=== PATIENT | male | born 1985 | race American Indian/Alaskan Native ===

== ENCOUNTER 2019-08-23 21:39 | Emergency (ER) | payer SELFPAY ==
[2019-08-23] MEDS ORDERED: ACETAMINOPHEN 500 MG TAB PO ONE (21:49)
[2019-08-23] MEDS ORDERED: SODIUM CHLORIDE 0.9% 1000 ML 2,000 ML ONE (22:14)
[2019-08-23] MEDS ORDERED: SODIUM CHLORIDE 0.9% 1000 ML 1,000 ML IV ONE (22:17)
[2019-08-23] MEDS ORDERED: KETOROLAC 30 MG/1 ML INJ IV ONE (22:17)
[2019-08-23] MEDS ORDERED: SODIUM CHLORIDE 0.9% 1000 ML 2,000 ML IV ONE (22:17)
--- NOTE | 2019-08-23 22:24 | XRay Report ---
CHEST 1 VIEW INDICATION: suspected vovid fever cough sob. COMPARISON: None FINDINGS: Support devices: None. Heart: Within normal limits. Lungs/Pleura: Mild patchy right basilar airspace disease with clear left lung. Additional findings: None. IMPRESSION: 1. Pulmonary findings as above Signer Name: Abdirashid Waggoner MD Signed: 08/23/2019 10:19 PM Workstation Name: [id number]
--- NOTE | 2019-08-23 23:00 | Emergency Department Report ---
ED General Adult HPI - General Chief complaint: Dyspnea/Respdistress Stated complaint: BODYACHES,CHILLS,FEVER,KIP Time Seen by Provider: 08/23/19 21:49 Source: patient Mode of arrival: Ambulatory Limitations: No Limitations - History of Present Illness Initial comments: The patient is a 34-year-old gentleman. He is not known to myself previously. He does not have a local primary care doctor. He denies chronic medical conditions. Please note that for the entire history and physical examination, I had on complete personal protective equipment. The patient presents to the ER on day 7 of symptoms, with a complaint of cough, shortness of breath, malaise, fatigue. He denies DVT and pulmonary embolism risk factors. He reports taking albuterol inhaler that was prescribed from him. He denies physical pain at this time. He endorses self quarantine, and he reports no confirmed contacts with coronavirus that he is aware of. His symptoms are constant, getting worse, they increased with physical exertion, and they decreased with rest. -: Gradual, days(s) (7) Severity scale (0 -10): 6 Consistency: constant Improves with: rest Worsens with: movement - Related Data Previous Rx's Medication Instructions Recorded Last Taken Type Amoxicillin [Trimox CAP] 1,000 mg PO Q8H #28 capsule 08/24/19 Unknown Rx Azithromycin [Zithromax Z-SAM] 250 mg PO QDAY #4 tablet 08/24/19 Unknown Rx Allergies Allergy/AdvReac Type Severity Reaction Status Date / Time No Known Allergies Allergy Unverified 10/05/15 18:22 ED Review of Systems ROS: Stated complaint: BODYACHES,CHILLS,FEVER,KIP Other details as noted in HPI Constitutional: fever, malaise, weakness Eyes: denies: eye discharge ENT: congestion Respiratory: cough, shortness of breath Cardiovascular: denies: syncope Gastrointestinal: denies: abdominal pain Genitourinary: as per HPI Musculoskeletal: as per HPI Skin: as per HPI Neurological: as per HPI Psychiatric: as per HPI Hematological/Lymphatic: as per HPI ED Past Medical Hx - Past Medical History Hx Asthma: Yes - Surgical History Additional Surgical History: Appendix removal 2009 - Social History Smoking Status: Never Smoker Substance Use Type: Alcohol - Medications Home Medications: Home Medications Medication Instructions Recorded Confirmed Last Taken Type Amoxicillin [Trimox CAP] 1,000 mg PO Q8H #28 capsule 08/24/19 Unknown Rx Azithromycin [Zithromax Z-SAM] 250 mg PO QDAY #4 tablet 08/24/19 Unknown Rx ED Physical Exam - General Limitations: No Limitations General appearance: alert, anxious - Head Head exam: Present: atraumatic, normocephalic - Eye Eye exam: Present: normal appearance, EOMI. Absent: nystagmus - ENT ENT exam: Present: normal exam, normal orophraynx, mucous membranes moist, normal external ear exam - Neck Neck exam: Present: normal inspection, full ROM. Absent: tenderness, meningismus - Respiratory Respiratory exam: Absent: wheezes, rales, rhonchi, stridor - Cardiovascular Cardiovascular Exam: Present: normal rhythm, tachycardia, normal heart sounds. Absent: systolic murmur, diastolic murmur, rubs, gallop - GI/Abdominal GI/Abdominal exam: Present: soft. Absent: distended, tenderness, guarding, rebound, rigid, pulsatile mass - Rectal Rectal exam: Present: deferred - Extremities Exam Extremities exam: Present: normal inspection, full ROM, other (2+ pulses noted in the bilateral upper and lower extremities. There is no palpable cord. negative Homans sign. Muscular compartments are soft. The pelvis is stable.). Absent: pedal edema, calf tenderness - Back Exam Back exam: Present: normal inspection, full ROM. Absent: tenderness, CVA tenderness (R), CVA tenderness (L), paraspinal tenderness, vertebral tenderness - Neurological Exam Neurological exam: Present: alert, oriented X3, other (There is no facial droop. The tongue is midline. Extraocular movements are intact bilaterally. There is 5 out of 5 strength in bilateral upper and lower extremities. Sensation is intact to light touch bilateral upper and lower extremities. There is a normal gait.). Absent: motor sensory deficit - Psychiatric Psychiatric exam: Present: anxious - Skin Skin exam: Present: warm, dry, intact, normal color. Absent: rash ED Course Vital Signs 08/23/19 08/23/19 08/23/19 21:42 21:45 21:49 Temperature 103.0 F H 103.6 F H Pulse Rate 137 H Respiratory 24 20 Rate Blood Pressure 151/92 O2 Sat by Pulse 92 98 Oximetry 08/23/19 08/23/19 08/23/19 21:53 22:00 22:15 Temperature Pulse Rate 127 H 118 H 128 H Respiratory 21 39 H 25 H Rate Blood Pressure 141/94 126/86 O2 Sat by Pulse 95 Oximetry 08/23/19 08/23/19 08/23/19 22:30 22:45 23:00 Temperature Pulse Rate 116 H 117 H 114 H Respiratory 28 H 24 27 H Rate Blood Pressure 120/90 120/87 120/87 O2 Sat by Pulse 96 96 96 Oximetry 08/23/19 08/23/19 08/23/19 23:15 23:30 23:45 Temperature Pulse Rate 110 H 106 H 107 H Respiratory 25 H 26 H 23 Rate Blood Pressure 127/82 135/83 124/85 O2 Sat by Pulse 98 98 97 Oximetry 08/23/19 08/24/19 08/24/19 23:59 00:00 00:15 Temperature Pulse Rate 105 H 106 H 104 H Respiratory 25 H 23 22 Rate Blood Pressure 124/85 126/86 123/87 O2 Sat by Pulse 97 97 Oximetry 08/24/19 08/24/19 08/24/19 00:30 00:45 01:00 Temperature 99.8 F H Pulse Rate 102 H 94 H 94 H Respiratory 29 H 22 26 H Rate Blood Pressure 128/86 125/77 130/82 O2 Sat by Pulse 96 95 97 Oximetry 08/24/19 08/24/19 08/24/19 01:15 01:30 01:45 Temperature Pulse Rate 90 93 H 91 H Respiratory 20 21 27 H Rate Blood Pressure 123/82 120/73 124/80 O2 Sat by Pulse 98 Oximetry 08/24/19 08/24/19 02:00 02:15 Temperature Pulse Rate 93 H 93 H Respiratory 25 H 25 H Rate Blood Pressure 120/82 129/82 O2 Sat by Pulse 98 Oximetry - Reevaluation(s) Reevaluation #1: 08/23/19 22:59 Differential diagnosis, including but not limited to: Pneumonia, suspected coronavirus, viral syndrome, Assessment and plan: 34-year-old gentleman with fever and tachycardia, tachypnea , denies DVT and pulmonary embolism risk factors, is low risk by Wells criteria, likely presenting with pneumonia, viral versus bacterial versus both. He is not hypoxic on room air. We will treat him with fluids, Tylenol, Toradol, observe, and reassess. His tachycardia is improving. His physical exam is fairly unremarkable with the exception of tachycardia. No focal pulmonary abnormalities on physical exam Reevaluation #2: 08/23/19 23:21 Heart rate improving to 110 bpm. Patient endorses improvement in symptoms. Reevaluation #3: 08/24/19 00:17 Patient reassessed multiple times. Tachycardia much improved. Tachypnea much improved. No documented episodes of hypoxia. Patient resting comfortably and in no acute distress. X-ray the chest is reviewed and appreciated. Patient can continue albuterol, we will start amoxicillin, and azithromycin, reiterated Covid isolation instructions. Patient suitable for trial of outpatient anti biotic management. ED Medical Decision Making - Lab Data Vital Signs 08/23/19 08/23/19 08/23/19 21:42 21:49 21:53 Temperature 103.0 F H 103.6 F H Pulse Rate 137 H 127 H Respiratory 24 21 Rate Blood Pressure 151/92 O2 Sat by Pulse 92 Oximetry 08/23/19 08/23/19 08/23/19 22:00 22:15 22:30 Temperature Pulse Rate 118 H 128 H 116 H Respiratory 39 H 25 H 28 H Rate Blood Pressure 141/94 126/86 120/90 O2 Sat by Pulse 95 96 Oximetry - Radiology Data Radiology results: report reviewed, image reviewed Print Report Referring Physician: GEMMA VELASQUEZ Patient Name: DIEGO CUENCA Date of : 1985 Sex: Male Report Date: 2019-08-23 Report Status: Finalized Findings [facility] [address] [place] [address] XRay Report Signed Patient: DIEGO CUENCA MR#: [id number] : 1985 Acct:[id number] Age/Sex: 34 / M ADM Date: 08/23/19 Loc: ED Attending Dr: Ordering Physician: GEMMA VELASQUEZ MD Date of Service: 08/23/19 Procedure(s): XR chest 1V ap Accession Number(s): [id number] cc: GEMMA VELASQUEZ MD Fluoro Time In Minutes: CHEST 1 VIEW INDICATION: suspected vovid fever cough sob. COMPARISON: None FINDINGS: Support devices: None. Heart: Within normal limits. Lungs/Pleura: Mild patchy right basilar airspace disease with clear left lung. Additional findings: None. IMPRESSION: 1. Pulmonary findings as above Signer Name: Abdirashid Waggoner MD Signed: 08/23/2019 10:19 PM Workstation Name: [email or web address] Transcribed By: ARLEY Dictated By: Abdirashid Waggoner MD Electronically Authenticated By: Abdirashid Waggoner MD Signed Date/Time: 08/23/192218 DD/ 18 TD/TT: Critical care attestation.: If time is entered above; I have spent that time in minutes in the direct care of this critically ill patient, excluding procedure time. ED Disposition Clinical Impression: Suspected 2019 novel coronavirus infection, Acute febrile illness Disposition: - TO HOME OR SELFCARE Is pt being admited?: No Does the pt Need Aspirin: No Condition: Stable Instructions: COVID-19 Additional Instructions: Please wash hands with soap and water often and frequently. Do not touch hands to face, mouth, or eyes. Wear a mask, and continue practicing self isolation. Recommend social distancing from other individuals at least 6 feet on a continuous basis. Follow-up with your primary care doctor in 2 to 3 days for a repeat checkup/evaluation. Avoid consumption of alcohol, tobacco and smoke products. Take the antibiotics as directed. Drink plenty of water, 4 to 6 cups of water per day, and take Tylenol as needed for fever and pain, 650 mg, [id number], every 4-6 hours as needed. Please return to the emergency room right away with projectile vomiting, change in mental status, confusion, inability to tolerate liquid feeds, new, worsened or different symptoms not present on the initial emergency room evaluation. Patient may have a component of bacterial pneumonia, for which he is getting prescribed antibiotics, but he may also have coronavirus infection, typically takes 12 to 14 days to resolve. Patient should expect to continue to have symptoms of fever, lassitude, malaise and fatigue. Prescriptions: Amoxicillin [Trimox CAP] 1,000 mg PO Q8H #28 capsule Azithromycin [Zithromax Z-SAM] 250 mg PO QDAY #4 tablet Referrals: FEDE HENDRICKSON MD [Staff Physician] - 3-5 Days [facility] [Provider Group] - 3-5 Days
[2019-08-24] MEDS ORDERED: AZITHROMYCIN 250 MG TAB PO ONE (00:14)
[2019-08-24] MEDS ORDERED: AMOXICILLIN 500 MG CAP PO ONE (00:14)
[2019-08-24 02:33] VITALS: BP 129/82
== END 2019-08-24 02:34 | disposition home or self-care (01) ==
LOC: ED 21:39
DX: R50.9 Fever, unspecified (principal); Z03.818 Encounter for observation for suspected exposure to other biological agents ruled out; J45.909 Unspecified asthma, uncomplicated; Z98.890 Other specified postprocedural states; Z79.899 Other long term (current) drug therapy
CPT/HCPCS: 71045; 99283; J1885; J7030